=== PATIENT | female | born 1925 | race Caucasian/White ===

== ENCOUNTER 2017-02-05 17:34 | Emergency (ER) | payer BC ==
[2017-02-05 17:48] VITALS: BP 143/96; PULSE 72; TEMP 98.4; BMI 21.9
--- NOTE | 2017-02-05 18:32 | PDOC ---
Attending Attestation - Resident Resident Name: Puma Cortez - ED Attending Attestation I have performed the following: I have examined & evaluated the patient, The case was reviewed & discussed with the resident, I agree w/resident's findings & plan, Exceptions are as noted - HPI HPI: 02/05/17 18:31 Fall from standing, co shoulder pain/injury - Physicial Exam PE: 02/05/17 18:31 VSS/NAD - Medical Decision Making 02/05/17 18:[address] Cortez's Assessment and Plan
[2017-02-05] MEDS ORDERED: ONDANSETRON *ODT* 4 MG TABLET SL ONE (19:16)
[2017-02-05] MEDS ORDERED: ONDANSETRON *ODT* 4 MG TABLET ONE (19:25)
--- NOTE | 2017-02-05 22:15 | PDOC ---
History of Present Illness - General Chief Complaint: Injury Stated Complaint: FALL Time Seen by Provider: 02/05/17 18:28 History Source: Patient, Family Exam Limitations: No Limitations - History of Present Illness Initial Comments: 02/05/17 20:14 The patient is an 89F with a PMH of spinal stenosis who presented to the ED after sustaining a fall from standing height. The patient is with her nephew who provided some of the history. The nephew states that the patient was making an abrupt turn, lost balance and tripped on the edge of a rug. She denies LOC, any head trauma, CP, SOB. Past History - Past Medical History Allergies/Adverse Reactions: Allergies Allergy/AdvReac Type Severity Reaction Status Date / Time aspirin Allergy Intermediate Verified 02/05/17 18:19 Home Medications: Ambulatory Orders Clonazepam 2.5 mg PO BID 01/21/13 Sertraline HCl [Zoloft -] 50 mg PO DAILY 01/21/13 Pantoprazole Sodium [Protonix -] 40 mg PO BID 12/18/14 Gabapentin 100 mg PO BID 02/05/17 Tramadol HCl 50 mg PO BID 02/05/17 COPD: No GI Disorders: Yes (GERD, DYSPHAGIA, GASTRITIS, ESOPHAGEAL STRICTURE) Psychiatric Problems: Yes (anxiety) - Suicide/Smoking/Psychosocial Hx Smoking History: Former smoker Have you smoked in the past 12 months: No If you are a former smoker, when did you quit?: 10 years ago Information on smoking cessation initiated: No Hx Alcohol Use: No Drug/Substance Use Hx: No Substance Use Type: None Review of Systems - Review of Systems Able to Perform ROS?: Yes Comments:: 02/05/17 22:33 GENERAL/CONSTITUTIONAL: No fever or chills. No weakness. HEAD, EYES, EARS, NOSE AND THROAT: No change in vision. No ear pain or discharge. No sore throat. GASTROINTESTINAL: No nausea, vomiting, diarrhea, constipation, or abdominal pain. GENITOURINARY: No dysuria, frequency, hematuria, or change in urination. CARDIOVASCULAR: No chest pain, palpitations, or lightheadedness. RESPIRATORY: No cough, wheezing, shortness of breath, or hemoptysis. MUSCULOSKELETAL: Positive for L arm/shoulder pain. No neck or back pain. SKIN: No rash or lesions. NEUROLOGIC: No headache, numbness, tingling, weakness, loss of consciousness, or change in strength/sensation. ENDOCRINE: No increased thirst. No abnormal weight change. HEMATOLOGIC/LYMPHATIC: No anemia, easy bleeding, or history of blood clots. ALLERGIC/IMMUNOLOGIC: No hives or skin allergy. Is the patient limited [place] proficient: No *Physical Exam - Vital Signs Last Vital Signs Temp Pulse Resp BP Pulse Ox 98.4 F 72 18 143/96 94 L 02/05/17 17:46 02/05/17 17:46 02/05/17 17:46 02/05/17 17:46 02/05/17 17:46 - Physical Exam Comments: 02/05/17 22:33 GENERAL: Well developed, well nourished. Awake and alert. No acute distress. HEENT: Normocephalic, atraumatic. Hearing grossly normal. Moist mucous membranes. PERRLA, EOMI. No conjunctival pallor. Sclera are non-icteric. Oropharynx is clear. NECK: Supple. Full ROM. No JVD. Carotid pulses 2+ and symmetric, without bruits. No thyromegaly. No lymphadenopathy. CARDIOVASCULAR: Regular rate and rhythm. No murmurs, rubs, or gallops. Distal pulses are 2+ and symmetric. PULMONARY: No evidence of respiratory distress. Lungs clear to auscultation bilaterally. No wheezing, rales or rhonchi. ABDOMINAL: Soft. Non-tender. Non-distended. No rebound or guarding. No organomegaly. Normoactive bowel sounds. GENITOURINARY: No CVA tenderness bilaterally. MUSCULOSKELETAL: Tenderness to palpation over R humeral head. Decreased active and passive ROM in R arm. EXTREMITIES: No cyanosis. No clubbing. No edema. No calf tenderness. SKIN: Warm and dry. Normal capillary refill. No rashes. No jaundice. NEUROLOGICAL: Alert, awake, appropriate. Cranial nerves 2-12 intact. PSYCHIATRIC: Cooperative. Good eye contact. Appropriate mood and affect. ED Treatment Course - RADIOLOGY Radiology Studies Ordered: Category Date Time Status UPPER EXTREMITY CT W/O CONTR [CT] Stat CT Scan 02/05/17 20:11 Ordered - Medications Given in the ED: ED Medications Discontinued Medications Generic Name Dose Route Start Last Admin Trade Name Freq PRN Reason Stop Dose Admin Ondansetron HCl 8 mg 02/05/17 19:16 02/05/17 19:30 Zofran Odt - SL 02/05/17 19:17 8 mg ONCE ONE Administration Oxycodone/Acetaminophen 1 combo 02/05/17 19:16 02/05/17 19:29 Percocet 5/325 - PO 02/05/17 19:17 1 combo ONCE ONE Administration Medical Decision Making - Medical Decision Making 02/05/17 22:34 The patient is an 89F who presented after a mechanical fall. She has a fractured head of humerus. She was placed in a shoulder immobilizer and told to follow up with her PCP and ortho. Patient agrees and is ready for d/c. *DC/Admit/Observation/Transfer Diagnosis at time of Disposition: Humerus head fracture Qualifiers: Encounter type: initial encounter Fracture type: closed Laterality: left Qualified Code(s): S42.292A - Other displaced fracture of upper end of left humerus, initial encounter for closed fracture - Discharge Dispostion Disposition: HOME Condition at time of disposition: Stable Admit: No - Referrals Referrals: Jesus Manuel Henderson MD [Primary Care Provider] - Scott Sharpe MD [Staff Physician] - - Patient Instructions Printed Discharge Instructions: How to Use a Sling Additional Instructions: Please return to the ER if symptoms persist, worsen, or new symptoms arise. Please follow up with your primary care physician in 2-3 days. Please follow up with Dr. Sharpe or one of his associates in 1-3 days. Please return to the ER if you have any signs or symptoms of chest pain, shortness of breath, uncontrollable fever, chills, nausea, vomiting, numbness, tingling, or weakness in any part of your body, changes in vision, or slurred speech. Print Language: BAHRAINI - Post Discharge Activity
[2017-02-05] MEDS ORDERED: ACETAMINOPHEN 325 MG TABLET (FP) PO ONE (22:32)
== END 2017-02-05 22:36 | disposition home or self-care (01) ==
LOC: JER 17:34
PROC: 2W3BXYZ Immobilization of Left Upper Arm using Other Device (ICD-10-PCS; principal; 2017-02-05)
DX: S42.292A Other displaced fracture of upper end of left humerus, initial encounter for closed fracture (principal); W18.09XA Striking against other object with subsequent fall, initial encounter; Y93.89 Activity, other specified; Y92.038 Other place in apartment as the place of occurrence of the external cause; Y99.8 Other external cause status
CPT/HCPCS: 73030-TC-LT; 73200-TC-RT; 99283-25